=== PATIENT | female | born 1935 | race African-American/Black ===

== ENCOUNTER 2016-12-18 08:00 | Inpatient (IN) | payer OTHER, MEDICARE ==
[~2016-12-18] VITALS: Ht 166.4 cm; Wt 52.9 kg
[2016-12-31] MEDS ORDERED: GLEE100T PO (14:16)
[2016-12-31] MEDS ORDERED: AMLO10 PO (14:30)
[2016-12-31] MEDS ORDERED: FERR325C PO (14:30)
[2016-12-31] MEDS ORDERED: PROT40TA PO (14:30)
[2017-01-01] MEDS ORDERED: INSULIN HUMAN REGULAR 1,000 UNITS/10 ML VIAL SQ PRN (06:45)
[2017-01-01] MEDS ORDERED: ceFAZolin 2 GM PREMIX 50 ML IV SCH (06:45)
[2017-01-01] MEDS ORDERED: LACTATED RINGER'S 1000 ML IV PRN (06:45)
[2017-01-01] MEDS ORDERED: POVIDONE IODINE 5% (ANTISEPSIS KIT) 4 APPLICATIONS EACH NARE PRN (06:45)
[2017-01-01] MEDS ORDERED: METOPROLOL TARTRATE 25 MG TAB PO PRN (06:45)
[2017-01-01] MEDS ORDERED: CHLORHEXIDINE GLUCONATE 2 % 1 PACK (2 CLOTHS) TOPICAL PRN (06:45)
[2017-01-01] MEDS ORDERED: SODIUM CHLORID 0.9% 500 ML IV PRN (06:45)
[2017-01-01] MEDS ORDERED: DEXAMETHASONE SOD PHOS PF 10 MG/ML VIAL IV ONE (08:52)
[2017-01-01] MEDS ORDERED: BUPIVACAINE LIPOSOME PF 1.3% 20 ML VIAL ONE (08:52)
[2017-01-01] MEDS ORDERED: CENTCHW3 (08:57)
[2017-01-01] MEDS ORDERED: MULT1TAB PO (08:57)
[2017-01-01] MEDS ORDERED: OCUVTAB PO (08:57)
[2017-01-01 09:13] VITALS: BP 145/57; PULSE 82; RESP 18; TEMP 98.6; O2SAT 100
[2017-01-01 10:06] LABS: BICARBONATE 26.2 MEQ/L (21.0-32.0); POTASSIUM 3.9 MEQ/L (3.5-5.1)
[2017-01-01 10:07] LABS: AUTOMATED NEUTROPHIL # 1.6 TH/MM3 (1.8-7.7); BASOPHIL % 0.8 % (0.0-2.0); EOSINOPHIL # 0.1 TH/MM3 (0-0.4); EOSINOPHIL % 2.6 % (0.0-4.0); HEMATOCRIT 28.3 % (35.0-46.0); HEMO FLAGS DIFF FINAL; LYMPH % 35.1 % (9.0-44.0); LYMPHOCYTE # 1.1 TH/MM3 (1.0-4.8); MEAN CELL VOLUME 102.9 FL (80.0-100.0); MEAN CORPUSCULAR HEMOGLOBIN 34.5 PG (27.0-34.0); MEAN CORPUSCULAR HGB CONC 33.6 % (32.0-36.0); MONO % 11.2 % (0.0-8.0); NEUT % 50.3 % (16.0-70.0); PLATELET COUNT 178 TH/MM3 (150-450); RED BLOOD COUNT 2.75 MIL/MM3 (4.00-5.30); RED CELL DISTRIBUTION WIDTH 13.3 % (11.6-17.2); WHITE BLOOD COUNT 3.3 TH/MM3 (4.0-11.0)
[2017-01-01] MEDS ORDERED: BUPIVACAINE/EPINEPHRINE 0.25% PF 30 ML VIAL INFIL ONE (11:50)
[2017-01-01] MEDS ORDERED: PHENYLEPH/NS 1000 MCG/10 ML SYR IV ONE (12:00)
[2017-01-01] MEDS ORDERED: PROPOFOL 200 MG/20 ML AMP IV ONE (12:00)
[2017-01-01] MEDS ORDERED: NORMOSOL R INJ 1,000 ML IV ONE (12:00)
[2017-01-01] MEDS ORDERED: ONDANSETRON HCL 4 MG/2 ML VIAL IV PUSH ONE (12:00)
[2017-01-01] MEDS ORDERED: ePHEDrine/NS 25 MG/5 ML SYR IV ONE (12:00)
[2017-01-01] MEDS ORDERED: FAMOTIDINE 20 MG/2 ML VIAL ONE (12:44)
[2017-01-01] MEDS ORDERED: DEXAMETHASONE SOD PHOS 4 MG/ML VIAL ONE (12:44)
--- NOTE | 2017-01-01 16:23 | EKG ---
Date Performed: 01/01/2017 Time Performed: 10:33:50 PTAGE: 81 years EKG: Sinus rhythm NORMAL ECG PREVIOUS TRACING : 10/06/2015 21.23 Compared to the previous tracing rate slower DOCTOR: Tho Luke Interpretating Date/Time 01/01/2017 16:20:38
[2017-01-01] MEDS ORDERED: SUGAMMADEX SODIUM 200 MG/2 ML VIAL IV PUSH ONE ×2 (16:24)
--- NOTE | 2017-01-01 16:41 | HHI.PR ---
Immediate Post Op Note Procedure Date: Jan 01, 2017 Pre Op Diagnosis: (1) GIST, malignant Post Op Diagnosis: (1) GIST, malignant Surgeon: Pepe Morris Cable Tool Operator(s): staff Procedure: lap [place] lap converted to open partial gastrectomy Findings: mostly necrotic tumor Complications: none Specimen(s) removed: GB, partial gastrectomy Estimated blood loss: 400ml Anesthesia: General, Regional Block Drains: None Patient to: PACU Patient Condition: Good Pepe Morris MD Jan 01, 2017 16:41
[2017-01-01] MEDS ORDERED: *morphine SULFATE 8 MG/ML PERIprocedure ONLY ONE ×3 (16:42→17:50)
[2017-01-01] MEDS ORDERED: ONDANSETRON HCL 4 MG/2 ML VIAL IV PRN (16:45)
[2017-01-01] MEDS ORDERED: BENZOCAINE 20% ORAL SPR 60 ML CAN MT PRN (16:45)
[2017-01-01] MEDS ORDERED: traMADol HCL 50 MG TAB PO PRN (16:45)
[2017-01-01] MEDS ORDERED: Post-op Orders (for Pharmacy) MISC XX ONE (16:45)
[2017-01-01] MEDS ORDERED: KETOROLAC TROMETHAMINE 30 MG/ML (IVP) VIAL IVP PRN (16:45)
[2017-01-01] MEDS ORDERED: NALOXONE HCL 0.4 MG/ML AMP IV PRN (16:45)
[2017-01-01] MEDS ORDERED: MORPHINE SULFATE 8 MG/ML INJ IV PUSH PRN (16:45)
[2017-01-01] MEDS ORDERED: SODIUM CHLORIDE 0.9% FLUSH 10 ML FLUSH IV FLUSH PRN (16:45)
[2017-01-01] MEDS ORDERED: diphenhydrAMINE HCL 50 MG/ML VIAL IV PRN (16:45)
[2017-01-01] MEDS ORDERED: MIDAZOLAM HCL 2 MG/2 ML VIAL ONE (16:50)
[2017-01-01] MEDS ORDERED: fentaNYL CITRATE 250 MCG/5 ML AMP ONE (16:51)
[2017-01-01] MEDS: SODIUM CHLOR 0.9% 1000 ML INJ 1,000 ML IV SCH (17:00)
[2017-01-01] MEDS: ACETAMINOPHEN 1000 MG/100 ML VIAL IV SCH ×2 (18:00→23:44)
[2017-01-01] MEDS ORDERED: DO NOT ADM ANY ANTICOAGULANT DRUGS PRN (18:00)
[2017-01-01 20:00] VITALS: BP 156/68; PULSE 65; RESP 19; TEMP 96; O2SAT 98
[2017-01-01] MEDS: SODIUM CHLORIDE 0.9% FLUSH 10 ML FLUSH IV FLUSH SCH (21:00)
[2017-01-01] MEDS: PANTOPRAZOLE SODIUM 40 MG VIAL IV SCH (21:38)
[2017-01-01 22:15] VITALS: O2SAT 98
[2017-01-01 23:56] VITALS: BP 160/80; PULSE 86; RESP 19; TEMP 98; O2SAT 95
[2017-01-02 04:00] VITALS: BP 158/72; PULSE 77; RESP 19; TEMP 97.6; O2SAT 98
[2017-01-02] MEDS: ACETAMINOPHEN 1000 MG/100 ML VIAL IV SCH ×4 (05:45→23:26)
[2017-01-02 07:43] VITALS: BP 171/73; PULSE 71; RESP 18; TEMP 98.2; O2SAT 98
[2017-01-02 07:44] LABS: AUTOMATED NEUTROPHIL # 10.6 TH/MM3 (1.8-7.7); HEMATOCRIT 32.5 % (35.0-46.0); HEMO FLAGS DIFF FINAL; LYMPH % 3.5 % (9.0-44.0); LYMPHOCYTE # 0.4 TH/MM3 (1.0-4.8); MEAN CELL VOLUME 100.9 FL (80.0-100.0); MEAN CORPUSCULAR HEMOGLOBIN 32.2 PG (27.0-34.0); MEAN CORPUSCULAR HGB CONC 31.9 % (32.0-36.0); MONO % 6.3 % (0.0-8.0); NEUT % 90.2 % (16.0-70.0); PLATELET COUNT 140 TH/MM3 (150-450); RED BLOOD COUNT 3.22 MIL/MM3 (4.00-5.30); RED CELL DISTRIBUTION WIDTH 16.1 % (11.6-17.2); WHITE BLOOD COUNT 11.8 TH/MM3 (4.0-11.0)
[2017-01-02 08:13] LABS: POTASSIUM 4.6 MEQ/L (3.5-5.1)
[2017-01-02] MEDS: SODIUM CHLORIDE 0.9% FLUSH 10 ML FLUSH IV FLUSH SCH ×2 (08:46→21:00)
--- NOTE | 2017-01-02 11:19 | HHI.PR ---
Subjective Subjective Notes Resting in bed Very thankful to Dr. Morris and staff on 7N Had a restful night's sleep Daughter at bedside also equally as pleased Objective Vitals/I&O Vital Signs Date Time Temp Pulse Resp B/P Pulse Ox O2 Delivery O2 Flow Rate FiO2 01/02/17 07:43 98.2 71 18 171/73 98 01/01/17 22:15 Nasal Cannula 3.00 Labs Laboratory Tests Test 01/02/17 06:22 White Blood Count 11.8 Red Blood Count 3.22 Hemoglobin 10.4 Hematocrit 32.5 Mean Corpuscular Volume 100.9 Mean Corpuscular Hemoglobin 32.2 Mean Corpuscular Hemoglobin 31.9 Concent Red Cell Distribution Width 16.1 Platelet Count 140 Mean Platelet Volume 9.2 Neutrophils (%) (Auto) 90.2 Lymphocytes (%) (Auto) 3.5 Monocytes (%) (Auto) 6.3 Eosinophils (%) (Auto) 0.0 Basophils (%) (Auto) 0.0 Neutrophils # (Auto) 10.6 Lymphocytes # (Auto) 0.4 Monocytes # (Auto) 0.7 Eosinophils # (Auto) 0.0 Basophils # (Auto) 0.0 CBC Comment DIFF FINAL Differential Comment Sodium Level 142 Potassium Level 4.6 Chloride Level 112 Carbon Dioxide Level 23.0 Anion Gap 7 Blood Urea Nitrogen 10 Creatinine 0.88 Estimat Glomerular Filtration 75 Rate Random Glucose 120 Calcium Level 9.8 Cardiovascular: Regular Lungs: Clear Abdomen: Other (midline incision with artemio; minimal bloody drainage on dressing; lap sites c/d/i ) Extremities: No edema A/P Assessment and Plan 81 year old female POD1 lap [place] and lap converted to open partial gastrectomy for GIST tumor -Start on sips of clears today -Pain control -OOB and mobilize; consult to PT -Wean oxygen -Plan to DC [place] tomorrow AM Attending Statement The exam, history, and the medical decision-making described in the above note were completed with the assistance of the mid-level provider. I reviewed and agree with the findings presented. I attest that I had a [id number] encounter with the patient on the same day, and personally performed and documented my assessment and findings in the medical record. Abdominal exam: stable postoperative, surgical incisions clean, intact, no peritonitis, no wound infection ok for clears and advance diet Lisa Siu Jan 02, 2017 11:19 Pepe Mroris MD Jan 16, 2017 22:21
[2017-01-02 12:00] VITALS: BP 140/70; PULSE 97; RESP 19; TEMP 96.9; O2SAT 96
[2017-01-02] MEDS: SODIUM CHLOR 0.9% 1000 ML INJ 1,000 ML IV SCH (12:55)
[2017-01-02 16:00] VITALS: BP 140/70; PULSE 76; RESP 20; TEMP 98.1; O2SAT 96
[2017-01-02] MEDS: ENOXAPARIN SODIUM 40 MG/0.4 ML SYRINGE SQ SCH (16:50)
[2017-01-02] MEDS: PANTOPRAZOLE SODIUM 40 MG VIAL IV SCH (16:50)
[2017-01-02 18:14] VITALS: O2SAT 96
[2017-01-02 20:00] VITALS: BP 164/62; PULSE 74; RESP 18; TEMP 98.1; O2SAT 98
[2017-01-03] VITALS (7 sets, daily range): BP systolic 140–170; BP diastolic 60–68; PULSE 82–98; RESP 16–18; TEMP 97.5–99.1; O2SAT 94–98
[2017-01-03] MEDS: ACETAMINOPHEN 1000 MG/100 ML VIAL IV SCH ×2 (06:08→12:01)
[2017-01-03] MEDS: SODIUM CHLOR 0.9% 1000 ML INJ 1,000 ML IV SCH ×2 (06:08→16:42)
[2017-01-03] MEDS: SODIUM CHLORIDE 0.9% FLUSH 10 ML FLUSH IV FLUSH SCH ×2 (08:57→19:54)
--- NOTE | 2017-01-03 15:21 | HHI.FF ---
Face to Face Verification Diagnosis: (1) Gastric mass Physical Therapy Order: Evaluate and Treat, Improve ambulation, Strength and gait training Instructions: No restrictions Home Health Nursing Order: Wound care and dressing changes Instructions: Midline incision--- dry [place] dressing to midline incision; change daily Lap sites--- change bandages daily please Okay to shower between dressing changes I have seen patient Karie Antonio on 01/03/17. My clinical findings support the need for the requested home health care services because: Limited ability to care for self High risk of falls I certify that my clinical findings support that this patient is homebound because: Post-op weakness Lisa Siu [facility] Jan 03, 2017 15:21
[2017-01-03] MEDS: ENOXAPARIN SODIUM 40 MG/0.4 ML SYRINGE SQ SCH (16:43)
[2017-01-03] MEDS: PANTOPRAZOLE SODIUM 40 MG VIAL IV SCH (16:43)
--- NOTE | 2017-01-03 17:39 | HHI.PR ---
Subjective Subjective Notes Patient with no complaints; daughter at bedside Objective Vitals/I&O Vital Signs Date Time Temp Pulse Resp B/P Pulse Ox O2 Delivery O2 Flow Rate FiO2 01/03/17 12:00 98.5 88 16 160/60 98 01/03/17 09:27 21 01/01/17 22:15 Nasal Cannula 3.00 Cardiovascular: Regular Lungs: Clear Abdomen: Other (midline incision with minimal drainage on dressing; lap sites c /d/i ) Extremities: No edema A/P Assessment and Plan 81 year old female POD2 lap [place] and lap converted to open partial gastrectomy for GIST tumor -Advance to soft diet today -Pain control -OOB and mobilize; consult to PT -+ void since removal of Key[place] -HHC set up -Home when tolerating diet and pain controlled Attending Statement The exam, history, and the medical decision-making described in the above note were completed with the assistance of the mid-level provider. I reviewed and agree with the findings presented. I attest that I had a [id number] encounter with the patient on the same day, and personally performed and documented my assessment and findings in the medical record. Abdominal exam: stable postoperative, surgical incisions clean, intact, no peritonitis, no wound infection tolerating diet, pain ok, DC home soon Lisa Siu Jan 03, 2017 17:39 Pepe Morris MD Jan 16, 2017 22:27
[2017-01-04] VITALS: BP 168/72; PULSE 105; RESP 18; TEMP 97.1; O2SAT 94
[2017-01-04 05:00] VITALS: BP 170/78; PULSE 112; RESP 18; TEMP 98.1; O2SAT 95
[2017-01-04] MEDS: SODIUM CHLOR 0.9% 1000 ML INJ 1,000 ML IV SCH ×2 (05:09→15:10)
[2017-01-04 08:00] VITALS: BP 150/68; PULSE 91; RESP 20; TEMP 98.7; O2SAT 97
[2017-01-04] MEDS: SODIUM CHLORIDE 0.9% FLUSH 10 ML FLUSH IV FLUSH SCH (08:20)
[2017-01-04 12:00] VITALS: BP 180/83; PULSE 95; RESP 16; TEMP 97.8; O2SAT 100
--- NOTE | 2017-01-04 13:20 | HHI.PR ---
Subjective Subjective Notes No pain Tolerating regular diet Objective Vitals/I&O Vital Signs Date Time Temp Pulse Resp B/P Pulse Ox O2 Delivery O2 Flow Rate FiO2 01/04/17 08:00 98.7 91 20 150/68 97 01/03/17 18:31 21 01/01/17 22:15 Nasal Cannula 3.00 Lungs: Clear Abdomen: Non-distended Narrative Exam Dressing dry without drainage A/P Problem List: (1) Small bowel obstruction (2) Iron deficiency (3) Hypochromic microcytic anemia (4) GIST, malignant Assessment and Plan POD #3 lap coco/resection small gastric GIST tumor Minimal discomfort Requests walker when she returns home today F/U Dr. Morris next week. Luis Daniel Broussard MD Jan 04, 2017 13:20
[2017-01-04] MEDS ORDERED: TRAM50TA PO (13:22)
[2017-01-04] MEDS ORDERED: GETGO ROLLING W1 MI1 (13:24)
[2017-01-04] MEDS: ENOXAPARIN SODIUM 40 MG/0.4 ML SYRINGE SQ SCH (16:00)
[2017-01-04] MEDS: PANTOPRAZOLE SODIUM 40 MG VIAL IV SCH (17:52)
--- NOTE | 2017-01-13 15:49 | HHI.DS ---
Discharge Summary Admission Date Jan 01, 2017 at 05:52 Discharge Date: Jan 04, 2017 Admitting Diagnosis GIST tumor (1) Small bowel obstruction (2) Iron deficiency (3) Hypochromic microcytic anemia (4) GIST, malignant Brief History 81 year old female s/p lap [place] and lap converted to open partial gastrectomy for GIST tumor PE at Discharge Alert and awake Cardio: RRR Resp: CTAB Abd: midline incision with artemio; abd soft; minimally tender to palpation Hospital Course This is a 81 year old female s/p lap [place] and lap converted to open partial gastrectomy for GIST tumor. The patient was able to tolerate regular soft diet. The patient's pain was controlled using oral pain medications. The patient was able to ambulate with the daughter's assistance. Home healthcare was arranged for dressing changes. The patient will follow-up with Dr. Morris as indicated on the DC information. Pt Condition on Discharge: Good Discharge Disposition: Discharge Home Discharge Instructions DIET: Follow Instructions for: Heart Healthy Diet Activities you can perform: Shower Only-No Bath Activities to Avoid: Strenuous Activity Lisa Siu Jan 13, 2017 15:49
--- NOTE | 2017-02-20 09:22 | MP ---
cc: MAHOGANY CARDONA MD DATE OF SURGERY 01/01/17 PREOPERATIVE DIAGNOSIS GIST tumor status post neoadjuvant therapy with Imatinib POSTOPERATIVE DIAGNOSIS GIST tumor status post neoadjuvant therapy with Imatinib PROCEDURE 1. Laparoscopic assisted partial gastrectomy. 2. Laparoscopic cholecystectomy. 3. Splenorrhaphy SURGEON Emeterio Cardona MD CATH LAB NURSE Staff. BLOOD LOSS 300 mL COMPLICATIONS Small bleeding from hilum of spleen with dissection of tumor out of splenic hilum laparoscopically well controlled with splenorrhaphy with silk sutures. FINDINGS A mostly necrotic GIST tumor on pathology frozen section grossly completely removed. Gallstones in the gallbladder which some sign of chronic inflammation. No acute inflammation. INDICATIONS FOR PROCEDURE The patient is a 81-year-old female who was diagnosed with a GIST tumor approximately 1 year ago and is undergoing neoadjuvant Imatinib therapy. The patient also has had some abdominal discomfort and, on imaging, does have multiple large gallstones concerning for possible symptomatic cholelithiasis. The patient was followed by Dr. Bebo Akhtar and was felt to have reached maximum response therapy with Imatinib and was recommend to undergo definitive surgical management for her GIST tumor. Risks, benefits, alternatives to laparoscopic possible open, partial gastrectomy for resection of GIST tumor as well as cholecystectomy were discussed with the patient and the family extensively prior to the procedure and they agreed to undergo the procedure. PROCEDURE IN DETAIL The patient was taken to the operating room, placed in supine position. Placed on general endotracheal anesthesia. The patient's abdomen was prepped and draped in sterile fashion. Time-out was performed. A tap block was performed on this patient of note prior to the procedure. We entered the abdomen through a Diaz direct entry technique just above the umbilicus. We used a 10-mm balloon trocar, placed this into the abdomen under direct visualization. We surveyed the abdomen with a 5 mm camera. There was no evidence of any complication from our entry. At this point in time, we placed one additional 10-mm port in the abdomen and two 5 mm ports in the epigastric and the right upper quadrant. These were done under direct visualization with the laparoscope as well. We were able to survey the abdomen. There was a large GIST tumor in the left upper quadrant which appeared to be mostly necrotic. There is no evidence of any metastatic disease or any other intra-abdominal pathology. On inspection of the gallbladder, this was rather large and floppy and had some chronic adhesions and large gallstones. There was no acute inflammation. We elected to perform the cholecystectomy first. We were able to grasp the gallbladder upward and retract the liver upward. We easily dissected out the triangle of Calot, the cystic duct and cystic artery using hook electrocautery as well as the [place] dissector. The critical view of safety was obtained. We double clipped the cystic duct proximally and single clipped distal and we did divide the cystic artery with the LigaSure. We used the spatula electrocautery to take the gallbladder off the gallbladder fossa without difficulty. This was removed from the abdomen with the EndoCatch bag. We then turned our attention towards the partial gastrectomy. We used blunt dissection as well as the harmonic scalpel to dissect the GIST tumor from the diaphragm as well as from the greater omentum and the transverse colonic mesentery. We opened up the lesser sac with a harmonic scalpel and took down the short gastrics. We noted that part of the GIST tumor was involved in the junction of the fundus and the body of the stomach. This was really only a small area of about 4 cm where the tumor was involved. We used a green load on the [place] [employer] GI stapler to wedge this section out and had clear gross margins at our stomach resection. Once we had freed this up, we continued our dissection using blunt dissection as well as the harmonic scalpel. We did a completely remove the tumor from the diaphragm and from the anterior portion of the pancreas which exposed the splenic artery. The tumor was only minimally attached at the hilum of the spleen and division of some of the small splenic artery branches began to bleed. The bleeding was small but this was not amenable to hemostasis laparoscopically. We removed the laparoscopic instruments. We therefore made a small upper midline incision using a 10-blade scalpel and the Bovie. A hand retractor was placed to gain access to the left upper quadrant and the tumor was easily removed from the patient as it had been completely dissected free at this point. I placed one 3-0 silk suture at the area of bleeding to ligate the small splenic artery branch. We had successful ligation of the vessel and good hemostasis. We irrigated out the left upper quadrant and all fluid was suctioned clear. We closed the patient with a single no. 1 PDS running suture. We closed the skin with artemio. The patient tolerated the procedure well and there were no complications. The counts were correct and I was present and scrubbed for the entire procedure. MD OUSMANE Coto/ /12:54 PM /9:16 AM VERONICA
== END 2017-01-04 18:20 | disposition home health service (06) | DRG 982 ==
LOC: HSDI 01-01 05:52 → N07A 01-01 18:41
PROVIDERS: ADMIT Surgery; ATTEND Surgery
PROC: 3E0T3CZ (ICD-10-PCS; 2017-01-01)
PROC: 07QP0ZZ Repair Spleen, Open Approach (ICD-10-PCS; 2017-01-01)
PROC: 0DB64ZZ Excision of Stomach, Percutaneous Endoscopic Approach (ICD-10-PCS; principal; 2017-01-01 12:53)
PROC: 0FT44ZZ Resection of Gallbladder, Percutaneous Endoscopic Approach (ICD-10-PCS; 2017-01-01 12:53)
PROC: 30233N1 Transfusion of Nonautologous Red Blood Cells into Peripheral Vein, Percutaneous Approach (ICD-10-PCS; 2017-01-01 12:53)
DX: C49.A2 Gastrointestinal stromal tumor of stomach (principal); K91.61 Intraoperative hemorrhage and hematoma of a digestive system organ or structure complicating a digestive system procedure; D50.9 Iron deficiency anemia, unspecified; K80.20 Calculus of gallbladder without cholecystitis without obstruction; Z53.31 Laparoscopic surgical procedure converted to open procedure
CPT/HCPCS: 36415; 36430; 80048; 85025; 86850; 86900; 86901; 86920; 88304; 88307; 88309; 88331; 93005; C9113; C9290; J0131; J0690; J1100; J1650; J2250; J2270; J2370; J2405; J3010; J7030; J7120; P9016